=== PATIENT | male | born 1980 | race African-American/Black ===

== ENCOUNTER 2017-12-20 15:49 | Emergency (ER) | payer BC ==
[2017-12-20] MEDS ORDERED: Sodium Chloride 0.9% 2.5 ML Syringe FLUSH PRN (16:16)
[2017-12-20] MEDS ORDERED: Dicyclomine 10 MG Cap PO ONE (16:16)
[2017-12-20] MEDS ORDERED: Ketorolac 30 MG/ML SDV IVPUSH ONE (16:16)
[2017-12-20] MEDS ORDERED: Sodium Chloride 0.9% 1,000 ML IV ONE (16:16)
[2017-12-20] MEDS ORDERED: Sodium Chloride 0.9% 10 ML Syringe FLUSH PRN (16:16)
--- NOTE | 2017-12-20 16:22 | EDM.PDOC ---
ED HPI GENERAL MEDICAL PROBLEM - General Chief Complaint: Abdominal Pain Stated Complaint: LT SIDE ABDOMINAL PAIN Time Seen by Provider: 12/20/17 16:06 - History of Present Illness INITIAL COMMENTS - FREE TEXT/NARRATIVE: HISTORY AND PHYSICAL: History of present illness: The patient is a 29-year-old male with no stated GI history no GI surgical history who presents with left lower abdominal pain that started approximately 2 hours ago. The patient said that he had an episode of similar pain 2 weeks ago that lasted about half a day but he did not seek treatment because it went away spontaneously. At that time there was no associated fever nausea vomiting or bowel habit changes. The patient says that he does eat a lot of vegetables and in fact stopped drinking alcohol 2 weeks ago on his own and has been doing very well from that standpoint. Patient says he has been drinking some increased caffeine of late. The patient tells me that this pain started 2 hours ago and came on suddenly and it was in the left lower abdomen, the similar location to 2 weeks ago. The pain does not radiate and there is no flank pain. Again there is no associated nausea vomiting dysuria frequency or urgency and the patient says he has not had black or bloody stools. Of note with his bowel movements is that he has had 2 bowel movements last evening and one today which is unusual for him to have some any bowel movements in such a short period of time. He said they were not watery but they were formed but he is concerned about the increased volume. 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 Patient denies any recent back or abdominal trauma and has no other systemic complaints such as chest pain shortness of breath Or respiratory symptoms lightheadedness or dizziness. The patient describes the pain as a sharp dull pain and if he lays on the left side there is an improvement of the pain. He did not take anything specifically today to alleviate the pain. The patient denies any testicular pain or swelling Review of systems: As per history of present illness and below otherwise all systems reviewed and negative. Past medical history: As per history of present illness and as reviewed below otherwise noncontributory. Surgical history: As per history of present illness and as reviewed below otherwise noncontributory. Social history: No reported history of drug or alcohol abuse. Family history: As per history of present illness and as reviewed below otherwise noncontributory. Physical exam: Gen.: Well-developed well-nourished man who is nontoxic and vital signs have been reviewed by me. The patient moves easily in the ED without distress or systems. HEENT: Atraumatic, normocephalic, negative for conjunctival pallor or scleral icterus, mucous membranes moist, throat clear, neck supple, nontender, trachea midline. Lungs: Clear to auscultation, breath sounds equal bilaterally, chest nontender. Heart: S1S2, regular rate and rhythm no overt murmurs Abdomen: Soft, nondistended, bowel sounds are slightly hypoactive and there is no tympany on percussion. There is mild tenderness to very deep palpation in the right lower quadrant but there is no rebound or guarding. The remainder of the abdomen is without tenderness. Negative for masses or hepatosplenomegaly. Negative for costovertebral tenderness. Pelvis: Stable nontender. Genitourinary: Deferred. Rectal: Deferred. Extremities: Atraumatic, negative for cords or calf pain. Neurovascular unremarkable. Neuro: Awake, alert, oriented. Cranial nerves II through XII unremarkable. Cerebellum unremarkable. Motor and sensory unremarkable throughout. Exam nonfocal. Diagnostics: CBC CMP UA amylase and lipase CT scan of the abdomen and pelvis Therapeutics: IV IV fluids Toradol I discussed with the patient and at bedside all testing results including the CT scan findings of the 1.5 cm indeterminate solid lesion in the right hepatic lobe posteriorly which needs further follow-up. I've also discussed the stool in the colon and have discussed with him using a probiotic or stool softener as well as pushing more hydration. I will give him clinic follow-up and have strongly advised him that he must follow-up in the clinic to get these liver lesion further clarified with testing that I cannot perform here. He states understanding of this. Impression: Abdominal pain stable, right hepatic lobe lesion etiology unclear, stool in the descending colon/colic pain Definitive disposition and diagnosis as appropriate pending reevaluation and review of above. left lower adominal Pain Score (Numeric/FACES): 7 - Related Data Allergies Allergy/AdvReac Type Severity Reaction Status Date / Time No Known Allergies Allergy Verified 12/20/17 16:02 Home Meds: Home Meds . [No Known Home Meds] 12/20/17 [History] Past Medical History HEENT History: Reports: None Cardiovascular History: Reports: None Respiratory History: Reports: None Gastrointestinal History: Reports: None Genitourinary History: Reports: None Musculoskeletal History: Reports: Other (See Below) Neurological History: Reports: None Psychiatric History: Reports: None Endocrine/Metabolic History: Reports: None Hematologic History: Reports: None Immunologic History: Reports: None Oncologic (Cancer) History: Reports: None Dermatologic History: Reports: None - Past Surgical History Head Surgeries/Procedures: Reports: None HEENT Surgical History: Reports: None Cardiovascular Surgical History: Reports: None Respiratory Surgical History: Reports: None GI Surgical History: Reports: None Male Surgical History: Reports: None Endocrine Surgical History: Reports: None Neurological Surgical History: Reports: None Musculoskeletal Surgical History: Reports: None Oncologic Surgical History: Reports: None Dermatological Surgical History: Reports: None Social & Family History - Family History Family Medical History: Noncontributory - Tobacco Use Smoking Status *Q: Never Smoker - Caffeine Use Caffeine Use: Reports: Coffee, Tea - Recreational Drug Use Recreational Drug Use: No ED ROS GENERAL - Review of Systems Review Of Systems: ROS reveals no pertinent complaints other than HPI. ED EXAM, GENERAL - Physical Exam Exam: See Below (See dictation) Course - Vital Signs Last Recorded V/S: Last Vital Signs Temp 36.9 C 12/20/17 17:38 Pulse 72 12/20/17 17:38 Resp 18 12/20/17 17:38 BP 117/52 L 12/20/17 17:38 Pulse Ox 98 12/20/17 17:38 - Orders/Labs/Meds Orders: Active Orders 24 hr Category Date Time Status Abdomen Pelvis w Cont [CT] Stat Exams 12/20/17 16:16 Taken Sodium Chloride 0.9% [Saline Flush] Med 12/20/17 16:16 Active 10 ml FLUSH ASDIRECTED PRN Sodium Chloride 0.9% [Saline Flush] Med 12/20/17 16:16 Active 2.5 ml FLUSH ASDIRECTED PRN Saline Lock Insert [OM.PC] Stat Oth 12/20/17 16:15 Ordered Medication Orders Sodium Chloride (Saline Flush) 10 ml FLUSH ASDIRECTED PRN PRN Reason: Keep Vein Open Sodium Chloride (Saline Flush) 2.5 ml FLUSH ASDIRECTED PRN PRN Reason: Keep Vein Open Labs: Laboratory Tests 12/20/17 12/20/17 12/20/17 Range/Units 15:55 16:26 16:26 WBC 5.26 (4.0-11.0) K/uL RBC 4.70 (4.50-5.90) M/uL Hgb 14.2 (13.0-17.0) g/dL Hct 41.5 (38.0-50.0) % MCV 88.3 (80.0-98.0) fL MCH 30.2 (27.0-32.0) pg MCHC 34.2 (31.0-37.0) g/dL RDW Std Deviation 41.1 (28.0-62.0) fl RDW Coeff of [place] 13 (11.0-15.0) % Plt Count 203 (150-400) K/uL MPV 9.80 (7.40-12.00) fL Neut % (Auto) 61.8 (48.0-80.0) % Lymph % (Auto) 30.4 (16.0-40.0) % [place] % (Auto) 6.3 (0.0-15.0) % Eos % (Auto) 1.3 (0.0-7.0) % Baso % (Auto) 0.2 (0.0-1.5) % Neut # (Auto) 3.3 (1.4-5.7) K/uL Lymph # (Auto) 1.6 (0.6-2.4) K/uL [place] # (Auto) 0.3 (0.0-0.8) K/uL Eos # (Auto) 0.1 (0.0-0.7) K/uL Baso # (Auto) 0.0 (0.0-0.1) K/uL Nucleated RBC % 0.0 /100WBC Nucleated RBCs # 0 K/uL Sodium 137 (136-146) mmol/L Potassium 3.8 (3.5-5.1) mmol/L Chloride 105 (98-110) mmol/L Carbon Dioxide 20 L (21-31) mmol/L BUN 15 (6.0-23.0) mg/dL Creatinine 0.9 (0.6-1.5) mg/dL Est Cr Clr Drug Dosing 125.77 mL/min Estimated GFR (MDRD) > 60.0 ml/min Glucose 76 (60-110) mg/dL Calcium 9.5 (8.8-10.8) mg/dL Total Bilirubin 0.5 (0.1-1.5) mg/dL AST 24 (5-40) IU/L ALT 13 (8-54) IU/L Alkaline Phosphatase 36 L (40-150) Total Protein 7.4 (6.0-8.0) g/dL Albumin 4.5 (3.5-5.0) g/dL Globulin 2.9 (2.0-3.5) g/dL Albumin/Globulin Ratio 1.6 (1.3-2.8) Amylase 78 (10-90) U/L Lipase 30 (7-80) U/L Urine Color YELLOW Urine Appearance CLEAR Urine pH 6.0 (5.0-8.0) Ur Specific [place] <= 1.005 (1.001-1.035) Urine Protein NEGATIVE (NEGATIVE) mg/dL Urine Glucose (UA) NEGATIVE (NEGATIVE) mg/dL Urine Ketones TRACE H (NEGATIVE) mg/dL Urine Occult Blood NEGATIVE (NEGATIVE) Urine Nitrite NEGATIVE (NEGATIVE) Urine Bilirubin NEGATIVE (NEGATIVE) Urine Urobilinogen 0.2 (<2.0) EU/dL Ur Leukocyte Esterase NEGATIVE (NEGATIVE) Urine RBC 0-1 (0-2/HPF) Urine WBC 0-1 (0-5/HPF) Ur Epithelial Cells RARE (NONE-FEW) Urine Bacteria RARE (NEGATIVE) Meds: Medications Generic Name Dose Route Start Last Admin Trade Name Freq PRN Reason Stop Dose Admin Sodium Chloride 10 ml 12/20/17 16:16 Saline Flush FLUSH ASDIRECTED PRN Keep Vein Open Sodium Chloride 2.5 ml 12/20/17 16:16 Saline Flush FLUSH ASDIRECTED PRN Keep Vein Open Discontinued Medications Generic Name Dose Route Start Last Admin Trade Name Freq PRN Reason Stop Dose Admin Dicyclomine HCl 20 mg 12/20/17 16:16 12/20/17 16:29 Bentyl PO 12/20/17 16:17 20 mg ONETIME ONE Administration Sodium Chloride 1,000 mls @ 999 mls/hr 12/20/17 16:16 12/20/17 16:30 Normal Saline IV 12/20/17 17:16 999 mls/hr STAT ONE Administration Iopamidol 100 ml 12/20/17 17:24 12/20/17 17:25 Isovue-370 (76%) IVPUSH 12/20/17 17:25 100 ml ONETIME STA Administration Ketorolac Tromethamine 30 mg 12/20/17 16:16 12/20/17 16:30 Toradol IVPUSH 12/20/17 16:17 30 mg ONETIME ONE Administration Departure - Departure Time of Disposition: 18:07 Disposition: Home, Self-Care 01 Condition: Good Clinical Impression: Liver lesion, right lobe Abdominal pain Qualifiers: Abdominal location: left lower quadrant Qualified Code(s): R10.32 - Left lower quadrant pain - Discharge Information Referrals: PCP,None [Primary Care Provider] - Forms: ED Department Discharge Additional Instructions: The following information is given to patients seen in the emergency department who are being discharged to home. This information is to outline your options for follow-up care. We provide all patients seen in our emergency department with a follow-up referral. The need for follow-up, as well as the timing and circumstances, are variable depending upon the specifics of your emergency department visit. If you don't have a primary care physician on staff, we will provide you with a referral. We always advise you to contact your personal physician following an emergency department visit to inform them of the circumstance of the visit and for follow-up with them and/or the need for any referrals to a consulting specialist. The emergency department will also refer you to a specialist when appropriate. This referral assures that you have the opportunity for followup care with a specialist. All of these measure are taken in an effort to provide you with optimal care, which includes your followup. Under all circumstances we always encourage you to contact your private physician who remains a resource for coordinating your care. When calling for followup care, please make the office aware that this follow-up is from your recent emergency room visit. If for any reason you are refused follow-up, please contact the [facility] emergency department at and ask to speak to the emergency department charge nurse. [facility] Primary care- [place] [address] Please call and follow-up in the clinic with one of our providers to further identify this small lesion on the right lobe of the liver. Please use over-the- counter meds as we discussed, probiotic and stool softener. Which hydration and return to ER as needed and as discussed. - My Orders Last 24 Hours: My Active Orders 12/20/17 16:15 Saline Lock Insert [OM.PC] Stat 12/20/17 16:16 Abdomen Pelvis w Cont [CT] Stat Sodium Chloride 0.9% [Saline Flush] 10 ml FLUSH ASDIRECTED PRN Sodium Chloride 0.9% [Saline Flush] 2.5 ml FLUSH ASDIRECTED PRN - Assessment/Plan Last 24 Hours: My Active Orders 12/20/17 16:15 Saline Lock Insert [OM.PC] Stat 12/20/17 16:16 Abdomen Pelvis w Cont [CT] Stat Sodium Chloride 0.9% [Saline Flush] 10 ml FLUSH ASDIRECTED PRN Sodium Chloride 0.9% [Saline Flush] 2.5 ml FLUSH ASDIRECTED PRN
[2017-12-20 17:00] LABS: CHLORIDE,CL 105 mmol/L (98-110); SODIUM,NA 137 mmol/L (136-146)
[2017-12-20] MEDS ORDERED: Iopamidol 755 Mg/ML 100 ML Bottle IVPUSH STA (17:24)
--- NOTE | 2017-12-21 16:15 | CT ---
EXAM DATE: 12/20/17 PATIENT'S AGE: 37 Patient: TARAS OLIVERA Facility: [place], [place] Site . Site : [id number] Study: CT Abdomen/Pelvis W CONT [id number]/[id number] 5:28:49 PM Ordering Physician: Monty Barton Final Report: INDICATION: Left lower quadrant pain on and off for 2 weeks. Hematuria. TECHNIQUE: CT of abdomen and pelvis performed after IV injection of 100 mL of Isovue-370. FINDINGS: Moderate amount of stool in the colon. Small solid lesion involving the superior posterior right hepatic lobe measures 1.5 cm and is indeterminate. This does not have the typical appearance of any of the benign liver lesions. This could be more thoroughly characterize with a follow-up liver MRI. Few additional low-density lesions in the liver some which are cysts and some which are too small to characterize. Small cysts in the right kidney. Wall of the stomach is moderately prominent but this is likely related to incomplete distention. Small right-sided hydrocele. Appendix is upper limits of normal in retrocecal. No periappendiceal inflammatory stranding. Small periumbilical hernia in the anterior abdominal wall containing only fat. Remainder negative. IMPRESSION: 1. No acute disease in the abdomen or pelvis. 2. 1.5 cm indeterminate solid lesion in the right hepatic lobe posteriorly and superiorly does not have the typical appearance of any of the benign liver lesions. Consider further evaluation with a follow-up liver MRI. 3. Few additional low-density lesions in the liver vary from cysts to lesions that are too small to characterize. 4. Moderate amount of stool in the colon. Other findings as above. Please note that all CT scans at this facility use dose modulation, iterative reconstruction, and/or weight-based dosing when appropriate to reduce radiation dose to as low as reasonably achievable. Dictated by Waldemar Cunha MD @ Dec 20 2017 5:32PM (Electronic Signature) Report Signed by Proxy. MTDD
== END 2017-12-20 18:16 | disposition home or self-care (01) ==
LOC: MW.ED 15:49
DX: K76.9 Liver disease, unspecified (principal)
CPT/HCPCS: 36415; 74177; 80053; 81001; 82150; 83690; 85025; 96361; 96374; 99284; A9270; J1885; J7040; Q9967